=== PATIENT | female | born 1950 | race American Indian/Alaskan Native ===

== ENCOUNTER 2020-05-08 06:40 | Outpatient (CLI) | payer MEDICARE ==
[2020-05-08 12:54] LABS: Hematocrit 38.2 % (30.3-42.9); Hemoglobin 12.4 gm/dl (10.1-14.3); Mean Corpuscular HGB Conc 33 % (30-34); Mean Corpuscular Volume 84 fl (79-97); Platelet Count 168 K/mm3 (140-440); Red Blood Count 4.55 M/mm3 (3.65-5.03); Red Cell Distribution Width 14.9 % (13.2-15.2)
[2020-05-08 13:03] LABS: Alanine Aminotransferase 21 units/L (7-56); Albumin 3.5 g/dL (3.9-5); BUN/Creatinine Ratio 10; Blood Urea Nitrogen 8 mg/dL (7-17); Calcium 9.6 mg/dL (8.4-10.2); Chol/HDL Ratio 2.58 %; HDL Cholesterol 56 mg/dL (40-59); Hemolysis Index 10; LDL Cholesterol,Direct 76 mg/dL (50-130)
[2020-05-08 13:42] LABS: Anisocytosis Few; Band Neutrophils # (Manual) 0.2 K/mm3; Basophils % (Manual) 0 % (0.0-1.8); Giant Platelets Rare; Macrocytosis Few; Platelet Clumps Rare; Platelet Estimate Consistent w Auto; Total Cells Counted 100
== END 2020-05-08 06:41 | disposition home or self-care (01) ==
LOC: LAB 06:40
PROVIDERS: ATTEND Family Medicine
DX: I10 Essential (primary) hypertension (principal); N17.9 Acute kidney failure, unspecified; E66.01 Morbid (severe) obesity due to excess calories; E11.9 Type 2 diabetes mellitus without complications
CPT/HCPCS: 36415; 80053; 80061; 80164; 80177; 83036; 85007; 85025